=== PATIENT | female | born 1980 | race Asian ===

== ENCOUNTER 2017-06-17 08:00 | Inpatient (IN) | payer OTHER ==
[2017-06-14 11:05] VITALS: BMI 37.5
--- NOTE | 2017-06-17 07:55 | HP ---
History & Physical Update - History History: No Change - Physical Physical: No Change - Assessment Assessment: No Change - Plan Plan: No Change
[~2017-06-17 08:00] MED LIST: HYDROmorphone HCL CARPU-JECT 2 MG/1 ML DISP.SYRIN IVPB PRN; IBUPROFEN 800 MG/8 ML IJ IVPB PRN
[2017-06-17] MEDS ORDERED: HYDROCHLOROTHIAZIDE 25 MG TABLET (FP) PO SCH (10:00)
[2017-06-17] MEDS ORDERED: VASOPRESSIN 20 UNITS/ML VIAL IV ONE (11:39)
[2017-06-17] MEDS ORDERED: ROPIVACAINE HCL 0.5% 30ML VIAL ONE (11:46)
[2017-06-17] MEDS ORDERED: MIDAZOLAM HCL 2 MG/2 ML SINGLE DOSE VIAL ONE ×2 (11:47)
[2017-06-17] MEDS ORDERED: PROPOFOL 20 ML ONE (12:20)
[2017-06-17] MEDS ORDERED: ROCURONIUM BROMIDE 50 MG/5 ML VIAL ONE ×2 (12:20→13:11)
[2017-06-17] MEDS ORDERED: ceFAZolin SODIUM 1 GM VIAL ONE (12:42)
[2017-06-17] MEDS ORDERED: DEXAMETHASONE SOD PHOSPHATE 4 MG/1 ML VIAL ONE (12:44)
[2017-06-17] MEDS ORDERED: ceFAZolin SODIUM 1 GM VIAL IVPB ONE (12:44)
[2017-06-17] MEDS ORDERED: ePHEDrine SULFATE 50 MG/1 ML AMPULE ONE (12:58)
[2017-06-17] MEDS ORDERED: GLYCOPYRROLATE 0.2 MG/1 ML VIAL ONE (13:25)
[2017-06-17] MEDS ORDERED: NEOSTIGMINE METHYLSULFATE 0.5 MG/ML - 10 ML MDV ONE (13:26)
[2017-06-17] MEDS ORDERED: ONDANSETRON 4 MG/2 ML VIAL IVPUSH PRN (13:55)
[2017-06-17] MEDS: HYDROmorphone HCL CARPU-JECT 1 MG/1 ML DISP.SYRIN IVPUSH PRN ×4 (13:55→14:25)
[2017-06-17] MEDS ORDERED: LACTATED RINGERS SOLUTION 1,000 ML IV SCH (14:00)
[2017-06-17] MEDS ORDERED: HYDROmorphone HCL CARPU-JECT 2 MG/1 ML DISP.SYRIN ONE (14:02)
--- NOTE | 2017-06-17 15:03 | OP ---
Operative Note - Note: Pre-Operative Diagnosis: Leiomyomatous Uterus. Sub serosal. intramural myomas Operation: Abdominal Myomectomy Post-Operative Diagnosis: Same as Pre-op Surgeon: Corry Montgomery Printed Circuit Board Designer: Ramona Mclaughlin Anesthesia: General Specimens Removed: 11 cm myoma Estimated Blood Loss (mls): 50 Operative Report Dictated: Yes
[2017-06-17] MEDS: DEXTROSE 5%-LACTATED RINGERS 1,000 ML IV SCH ×2 (15:45→23:31)
[2017-06-17] MEDS: PIOGLITAZONE HCL 15 MG TABLET (FP) PO SCH (16:19)
[2017-06-17] MEDS: EZETIMIBE 10 MG TABLET (FP) PO SCH (16:19)
[2017-06-17] MEDS: CEFAZOLIN 2 GM/D5W 50 ML IVPB SCH ×2 (16:21→18:38)
[2017-06-17] MEDS: METOPROLOL TARTRATE 25 MG TABLET (FP) PO SCH (16:22)
[2017-06-17] MEDS: ATORVASTATIN CA 10 MG TABLET (FP) PO SCH (21:44)
[2017-06-18] MEDS: ACETAMINOPHEN 325 MG TABLET (FP) PO PRN ×5 (01:19→19:41)
[2017-06-18] MEDS: oxyCODONE HCL 5 MG TABLET PO PRN ×4 (07:26→19:41)
[2017-06-18] MEDS: SIMETHICONE 80 MG TAB.CHEW (FP) PO PRN ×3 (07:28→19:41)
--- NOTE | 2017-06-18 09:39 | PN ---
Progress Note, Physician Chief Complaint: Status post myomectomy Ambulation Analgesia as needed Consider routine post op care History of Present Illness: 37 yo with Leiomyoma of the uterus is status post abdominal hysterectomy. She's lying in bed c/o incision pain. - Current Medication List Current Medications: Active Medications Acetaminophen (Tylenol -) 650 mg PO Q4H PRN PRN Reason: FEVER OR PAIN Last Admin: 06/18/17 07:27 Dose: 650 mg Atorvastatin Calcium (Lipitor -) 10 mg PO HS [facility] Last Admin: 06/17/17 21:44 Dose: 10 mg Ezetimibe (Zetia -) 10 mg PO ACDIN [facility] Last Admin: 06/17/17 16:19 Dose: Not Given Enoxaparin Sodium (Lovenox -) 40 mg SQ DAILY [facility] Hydrochlorothiazide (Hctz -) 25 mg PO DAILY [facility] Last Admin: 06/17/17 16:21 Dose: Not Given Hydromorphone HCl (Dilaudid Injection -) 2 mg IVPB Q4H PRN PRN Reason: PAIN Dextrose/Lactated Ringer's (D5-Lr -) 1,000 mls @ 125 mls/hr IV ASDIR [facility] Last Admin: 06/17/17 23:31 Dose: 125 mls/hr Metformin HCl (Glucophage Xr -) 500 mg PO ACDIN [facility] Last Admin: 06/17/17 16:19 Dose: Not Given Metoprolol Tartrate (Lopressor -) 12.5 mg PO DAILY [facility] Last Admin: 06/17/17 16:22 Dose: Not Given Oxycodone HCl (Roxicodone -) 5 mg PO Q4H PRN PRN Reason: PAIN Last Admin: 06/18/17 07:26 Dose: 5 mg Pioglitazone HCl (Actos -) 15 mg PO ACDIN [facility] Last Admin: 06/17/17 16:19 Dose: Not Given Simethicone (Mylicon -) 80 mg PO Q4H PRN PRN Reason: GAS Last Admin: 06/18/17 07:28 Dose: 80 mg - Objective Vital Signs: Vital Signs Temperature 98.2 F 06/18/17 06:00 Pulse Rate 81 06/18/17 06:00 Respiratory Rate 18 06/18/17 06:00 Blood Pressure 87/59 06/18/17 06:00 O2 Sat by Pulse Oximetry (%) 98 06/17/17 16:10 Constitutional: Yes: Well Nourished Eyes: Yes: WNL HENT: Yes: WNL Neck: Yes: WNL Cardiovascular: Yes: Regular Rate and Rhythm Respiratory: Yes: Regular, CTA Bilaterally Gastrointestinal: Yes: Normal Bowel Sounds Genitourinary: Yes: WNL Extremities: No: Calf Tenderness Wound/Incision: Yes: Dressing Dry and Intact Neurological: Yes: Alert, Oriented ...Motor Strength: WNL Psychiatric: Yes: Alert, Oriented Problem List - Problems (1) Status post myomectomy Code(s): Z98.890 - OTHER SPECIFIED POSTPROCEDURAL STATES Assessment/Plan Status post abdominal myomectomy Ambulation Analgesia as needed Continue post op care
--- NOTE | 2017-06-18 10:13 | PN ---
Progress Note (short form) - Note Progress Note: Anesthesiology Post-op POD#1 s/p Open myomectomy under GA with bilateral TAP blocks. Pt. is awake, feeling well. She admits to some pain but it is mild and controlled with medication as needed. She denies nausea. No apparent anesthesia-related issues. VSS.
[2017-06-18] MEDS: ENOXAPARIN NA (PORCINE) 40 MG/0.4 ML DISP.SYRIN SQ SCH (11:25)
[2017-06-18] MEDS ORDERED: BISACODYL 10 MG SUPP.RECT PR PRN (16:05)
[2017-06-18] MEDS ORDERED: CEFAZOLIN 1 GM in DEXTROSE 5%-WATER - 50 ML IVPB ONE (16:09)
[2017-06-18] MEDS ORDERED: ceFAZolin SODIUM 1 GM VIAL ONE (17:08)
[2017-06-18] MEDS ORDERED: DEXTROSE 5%-WATER - 50 ML IVPB ONE (17:08)
[2017-06-18 18:08] LABS: BASOPHIL 0.6 % (0-2.0); EOSINOPHIL 0.5 % (0-4.5); MCH 27.6 pg (25.7-33.7); MCHC 33.3 g/dl (32.0-36.0); MEAN CELL VOLUME 82.9 fl (80-96); NEUTROPHILS 80.2 % (42.8-82.8); PLATELET COUNT 255 K/MM3 (134-434); RDW 14.8 % (11.6-15.6); WHITE BLOOD COUNT 11.8 K/mm3 (4.0-10.0)
[2017-06-18] MEDS: PIOGLITAZONE HCL 15 MG TABLET (FP) PO SCH (18:26)
[2017-06-18] MEDS: EZETIMIBE 10 MG TABLET (FP) PO SCH (18:27)
[2017-06-18] MEDS: DEXTROSE 5%-LACTATED RINGERS 1,000 ML IV SCH (19:36)
[2017-06-18] MEDS: ATORVASTATIN CA 10 MG TABLET (FP) PO SCH (22:16)
--- NOTE | 2017-06-19 08:59 | PN ---
Progress Note (SOAP) - Subjective Chief Complaint: Pt doing well mild pain pt passing flatus ready to go home - Current Medications Current Medications: Active Medications Acetaminophen (Tylenol -) 650 mg PO Q4H PRN PRN Reason: FEVER OR PAIN Last Admin: 06/18/17 19:41 Dose: 650 mg Atorvastatin Calcium (Lipitor -) 10 mg PO HS [facility] Last Admin: 06/18/17 22:16 Dose: 10 mg Bisacodyl (Dulcolax Suppository -) 10 mg IN PRN PRN PRN Reason: CONSTIPATION Last Admin: 06/18/17 16:17 Dose: 10 mg Ezetimibe (Zetia -) 10 mg PO ACDIN [facility] Last Admin: 06/18/17 18:27 Dose: 10 mg Enoxaparin Sodium (Lovenox -) 40 mg SQ DAILY [facility] Last Admin: 06/18/17 11:25 Dose: 40 mg Hydrochlorothiazide (Hctz -) 25 mg PO DAILY [facility] Last Admin: 06/17/17 16:21 Dose: Not Given Hydromorphone HCl (Dilaudid Injection -) 2 mg IVPB Q4H PRN PRN Reason: PAIN Dextrose/Lactated Ringer's (D5-Lr -) 1,000 mls @ 125 mls/hr IV ASDIR [facility] Last Admin: 06/18/17 19:36 Dose: Not Given Metformin HCl (Glucophage Xr -) 500 mg PO ACDIN [facility] Last Admin: 06/18/17 18:26 Dose: 500 mg Metoprolol Tartrate (Lopressor -) 12.5 mg PO DAILY [facility] Last Admin: 06/17/17 16:22 Dose: Not Given Oxycodone HCl (Roxicodone -) 5 mg PO Q4H PRN PRN Reason: PAIN Last Admin: 06/18/17 19:41 Dose: 5 mg Pioglitazone HCl (Actos -) 15 mg PO ACDIN [facility] Last Admin: 06/18/17 18:26 Dose: 15 mg Simethicone (Mylicon -) 80 mg PO Q4H PRN PRN Reason: GAS Last Admin: 06/18/17 19:41 Dose: 80 mg - Objective Vital Signs: Vital Signs Temperature 98.3 F 06/18/17 22:00 Pulse Rate 90 06/18/17 22:00 Respiratory Rate 18 06/18/17 22:00 Blood Pressure 102/61 09/12/17 22:00 O2 Sat by Pulse Oximetry (%) 98 06/17/17 16:10 Constitutional: Yes: Well Nourished, No Distress Gastrointestinal: Yes: WNL, Normal Bowel Sounds, Soft Breast(s): Yes: WNL Musculoskeletal: Yes: WNL Extremities: Yes: WNL Edema: No Wound/Incision: Yes: Steri Strips, Open to air Labs Lab Results: CBC, BMP 06/18/17 17:20 Assessment/Plan SP myomectomy POD2 Stable ready for discharge Plan DC home RTO 1 week
[2017-06-19] MEDS: SIMETHICONE 80 MG TAB.CHEW (FP) PO PRN (09:03)
[2017-06-19] MEDS: ENOXAPARIN NA (PORCINE) 40 MG/0.4 ML DISP.SYRIN SQ SCH (09:03)
[2017-06-19] MEDS: oxyCODONE HCL 5 MG TABLET PO PRN (09:04)
[2017-06-19] MEDS: METOPROLOL TARTRATE 25 MG TABLET (FP) PO SCH (09:04)
[2017-06-19] MEDS: ACETAMINOPHEN 325 MG TABLET (FP) PO PRN (09:05)
[2017-06-19 09:22] VITALS: BP 122/70; PULSE 101; TEMP 99.4
--- NOTE | 2017-06-19 15:56 | PATH ---
Surgical Pathology Report Patient Name: HIEU HOLCOMB [facility]. Rec. 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 Specimen(s) Received FIBROID OF UTERUS Clinical History Leiomyoma of uterus Final Diagnosis UTERINE FIBROIDS, ABDOMINAL MYOMECTOMY: LEIOMYOMAS WITH FOCAL DEGENERATIVE AND FOCAL HYDROPIC CHANGES (LARGEST 13.0 CM). Electronically Signed Issa Shen M.D. Gross Description Received in formalin labeled "uterine fibroids" is a 563 g aggregate of 2 musa, irregular nodules measuring 2.8 x 1.5 x 1.5 cm and 13.0 x 9.5 x 9.0 cm. Sectioning reveals musa, firm to rubbery, whorled cerebriform architecture. No areas of hemorrhage or necrosis are identified. Pattern Fitter sections are submitted in 8 cassettes as follows: 1-2-smaller fibroid; 3-8-larger fibroid. DL/06/18/2017 saudi/06/18/2017
--- NOTE | 2017-06-20 12:57 | OP ---
DATE OF OPERATION: 06/17/2017 PREOPERATIVE DIAGNOSIS: Leiomyomatous uterus, submucosal myoma, intramural myomas. OPERATION: Abdominal myomectomy. POSTOPERATIVE DIAGNOSIS: Leiomyomatous uterus, submucosal myoma, intramural myomas. SURGEON: Corry Montgomery MD ENTERPRISE SOFTWARE DEVELOPER: Ramona Mclaughlin DO ANESTHESIA: General. FINDINGS: An 11-cm myoma removed from the posterior aspect of the uterus. ESTIMATED BLOOD LOSS: 50 mL. DESCRIPTION OF PROCEDURE: The patient was taken to the operating room and placed in supine position, prepped and draped in the usual sterile fashion. A time-out was performed in accordance with hospital regurgitation. Pfannenstiel skin incision was made with a scalpel. Cautery was then used to cut through layers of abdominal wall to the fascia. The fascia was cut in the midline. Cautery was then used to open the fascia in smiling fashion. Kochers were then used to bluntly and sharply dissect the rectus muscle off the fascia. The muscle was split in the midline. Peritoneal cavity was then entered and carried upward and downward. A bladder retractor was then placed. Uterus was then exteriorized. Tourniquet was placed in the clear space of the broad. Pitressin was then infiltrated into the posterior aspect of the uterus. Examination of the uterus revealed an approximately 11 cm intramural myoma. Cautery was then used to open the serosa. Sharp and blunt dissection was used to exteriorize the 11 cm myoma. Two other myomas were removed anteriorly. Incision was then closed using 0 Vicryl suture in continuous and locking stitch. A 2-0 V-Lock suture was then used in the serosa. Hemostasis was achieved. Other incisions were then closed using 0 Vicryl suture. Hemostasis was achieved. After palpation of the uterus, all myomas were removed. Tourniquet was then removed. Sutures were placed in hold from the tourniquet. Hemostasis was achieved. Tubes and ovaries were noted to be normal. Uterus anteriorized. Abdominal cavity was cleaned with lap pads. Abdominal sweep done. Peritoneum closed using 0 Vicryl suture in continuous stitch. Fascia was then closed using 0 Vicryl suture in 2 parts. The skin was then closed using 3-0 Vicryl in subcuticular fashion. The wound was washed and dressed. The patient tolerated the procedure well. Estimated blood loss 50 mL. Neeru [id number]
== END 2017-06-19 10:15 | disposition home or self-care (01) | DRG 743 ==
LOC: EDSTATUS 08:00 → JSAMEDAYSX 08:06 → J3W 16:00
PROVIDERS: ADMIT Obstetrics & Gynecology; ATTEND Obstetrics & Gynecology
PROC: 0UB90ZZ Excision of Uterus, Open Approach (ICD-10-PCS; principal; 2017-06-17 09:30)
DX: D25.1 Intramural leiomyoma of uterus (principal); D25.2 Subserosal leiomyoma of uterus; E66.9 Obesity, unspecified; I10 Essential (primary) hypertension; E78.5 Hyperlipidemia, unspecified; Z68.37 Body mass index [BMI] 37.0-37.9, adult
CPT/HCPCS: 36415; 84703; 85025; 86850; 86900; 86901; 88305-TC; 94010; 94760